=== PATIENT | female | born 1990 | race Caucasian/White ===

== ENCOUNTER → 2017-12-20 21:25 | Outpatient (CLI) | payer OTHER, SELFPAY ==
[2017-12-27 16:10] LABS: HPV Reflexed? NOT INDICATED
== END ==
PROVIDERS: Family Provider Family Medicine; PCP Family Medicine; Visit Provider Obstetrics & Gynecology
DX: Z01.419 Encounter for gynecological examination (general) (routine) without abnormal findings (principal); Z12.4 Encounter for screening for malignant neoplasm of cervix
CPT/HCPCS: 88175; G0145

== ENCOUNTER → 2019-09-12 17:45 | Outpatient (CLI) | payer OTHER, SELFPAY ==
[2019-09-12 20:46] LABS: Chlamydia Trachomatis by PCR Negative (Negative); Neisserai gonorrhoeae by PCR Negative (Negative); Probe Check PASS; Sample Adequacy Control PASS; Specimen Processing Control PASS
== END ==
PROVIDERS: Family Provider Family Medicine; PCP Family Medicine; Referring Provider Obstetrics & Gynecology; Visit Provider Obstetrics & Gynecology
DX: Z32.01 Encounter for pregnancy test, result positive (principal); Z11.3 Encounter for screening for infections with a predominantly sexual mode of transmission
CPT/HCPCS: 87491; 87591

== ENCOUNTER → 2019-09-15 09:08 | Outpatient (CLI) | payer OTHER, SELFPAY ==
[2019-09-15 10:09] LABS: Absolute Lymphocyte Count 1.81 X10^3/uL (0.83-4.51); Basophil# 0.04 X10^3/uL; Basophil% 0.4 % (0-1); Color, Urine Yellow (Yellow); Eosinophil# 0.05 X10^3/uL; Eosinophils% 0.5 % (0-5); Glucose, Dipstick Normal (Normal); Hematocrit 41.6 % (37-47); Hemoglobin 13.4 g/dL (12.0-15.0); Ketone-Dipstick Negative (Negative); Leukocyte Esterase-Dipstick 25 /ul (Negative); Lymphocyte # 1.81 X10^3/ul (4.0); Lymphocyte % 18.9 % (19-41); Mean Corp Hgb Conc 32.2 g/dL (32-36); Mean Corpuscular Hgb 29.5 pg (27.0-32.0); Mean Corpuscular Volume 91.6 fL (81-99); Monocyte# 0.68 X10^3/uL; Monocyte% 7.1 % (0-10); NRBC Flagged by Analyzer 0 % (0-5); Neutrophil # 6.99 X10^3/uL (2.7-7.7); Neutrophil % 72.9 % (47-70); Nitrite-Dipstick Negative (Negative); Occult Blood-Urine Negative /ul (Negative); Platelet Count 281 K/mm3 (150-450); Protein-Dipstick Negative (Negative); RBC Distribution Width CV 12.8 % (11.6-14.6); RBC Distribution Width SD 42.8 fl (35.1-43.9); Red Blood Count 4.54 M/mm3 (4.2-5.4); Urine Bilirubin Dipstick Negative (Negative); Urine Clarity Clear (Clear); Urine Urobilinogen Normal (Normal); White Blood Count 9.6 K/mm3 (4.4-11.0)
[2019-09-15 10:22] LABS: Amphetamine Urine VISTA NEGATIVE (<1000 ng/mL); Barbiturate Urine VISTA NEGATIVE (< 200 ng/mL); Benzodiazepine Urine VISTA NEGATIVE (< 200 ng/mL); Cocaine Urine VISTA NEGATIVE (< 300 ng/mL); Ecstacy Urine VISTA NEGATIVE (< 500 ng/mL); Methadone Urine VISTA NEGATIVE (< 300 ng/mL); PCP Urine VISTA NEGATIVE (< 25 ng/mL); THC Urine VISTA NEGATIVE (< 50 ng/mL); Vista UDS pH Range 6
[2019-09-15 10:45] LABS: ALB/GLOB Ratio 0.8 RATIO (0.9-2.4); AST(SGOT) 13 U/L (15-37); Alanine Aminotransfer ALT/SGPT 20 U/L (13-56); Albumin, Serum 3.5 g/dL (3.2-5.0); Alkaline Phosphatase 51 U/L (45-117); Anion Gap 7 (5-15); BUN 13 mg/dL (7-18); BUN/Creat Ratio 18.8 RATIO (10-20); Calcium,Total 8.9 mg/dL (8.5-10.1); Chloride 104 mmol/L (98-107); Creatinine, Serum 0.69 mg/dL (0.55-1.02); EST Glomerular Filtration Rate 106 mL/min (>60); Est Glom Filt Rate - Afr Amer 129 mL/min (>60); Globulin 4.2 g/dL (2.2-4.2); Glucose 58 mg/dL (74-106); Potassium 3.6 mmol/L (3.5-5.1); Protein, Total 7.7 g/dL (6.4-8.2); Sodium Level 139 mmol/L (136-145); Thyroid Stim Hormone (TSH) 1.52 uIU/mL (0.358-3.74)
[2019-09-17 10:31] LABS: HIV - WCH Non-Reactive (Nonreactive); Hepatitis B Surface Antigen Non-Reactive (Nonreactive); Hepatitis C Antibody Non-Reactive (Nonreactive); Rubella IgG 21.3 IU/mL; Vitamin D,25 Hydroxy 27.2 ng/mL (29.95-100.01)
[2019-09-20 02:46] LABS: Prenatal RPR NONREACTIVE (NONREACTIVE)
== END ==
PROVIDERS: Family Provider Family Medicine; PCP Family Medicine; Referring Provider Obstetrics & Gynecology; Visit Provider Obstetrics & Gynecology
DX: Z34.81 Encounter for supervision of other normal pregnancy, first trimester (principal)
CPT/HCPCS: 36415; 80053; 80307; 81002; 82306; 84144; 84443; 85025; 86703; 86762; 86803; 87340

== ENCOUNTER → 2019-11-30 | Outpatient (CLI) | payer OTHER, SELFPAY ==
[2016-11-09 17:39] VITALS: BMI 30.5
[2019-12-04 16:07] LABS: AFP MoM Value 1.24 (.); AFP Value-EIA 53.6 ng/mL (.); Comment Report (.); DIA MoM Value 0.64 (.); DIA Value-EIA 106.17 pg/mL (.); DSR (By Age) 665 (.); DSR (Second Trimester) 10000 (.); Gestat. Age Based On As provided (.); Insulin Dep Diabetes No (.); Maternal Age At EDD 30.4 yr (.); hCG MoM 1.11 (.)
== END | disposition home or self-care (01) ==
LOC: LABSPEC 15:45
PROVIDERS: Visit Provider Obstetrics & Gynecology
DX: Z34.82 Encounter for supervision of other normal pregnancy, second trimester (principal)
CPT/HCPCS: 82105; 82677; 84702

== ENCOUNTER → 2020-02-15 10:55 | Outpatient (CLI) | payer OTHER, SELFPAY ==
[2016-11-09 17:39] VITALS: BMI 30.5
[2020-02-15 17:06] LABS: Hematocrit 37.4 % (37-47); Hemoglobin 11.9 g/dL (12.0-15.0); Mean Corp Hgb Conc 31.8 g/dL (32-36); Mean Corpuscular Hgb 29.5 pg (27.0-32.0); Mean Corpuscular Volume 92.6 fL (81-99); Mean Platelet Vol. 11.5 fl (6.2-12.0); Platelet Count 262 K/mm3 (150-450); RBC Distribution Width CV 13.7 % (11.6-14.6); RBC Distribution Width SD 46.5 fl (35.1-43.9); Red Blood Count 4.04 M/mm3 (4.2-5.4); White Blood Count 13.9 K/mm3 (4.4-11.0)
[2020-02-15 17:52] LABS: Glucose Challenge Gest 1H 50g 122 mg/dL (70-140)
[2020-02-15 17:54] LABS: Vitamin D,25 Hydroxy 44.9 ng/mL
== END ==
PROVIDERS: Referring Provider Obstetrics & Gynecology; Visit Provider Obstetrics & Gynecology
DX: O26.893 Other specified pregnancy related conditions, third trimester (principal); E55.9 Vitamin D deficiency, unspecified; Z3A.00 Weeks of gestation of pregnancy not specified
CPT/HCPCS: 82306; 82950; 85027

== ENCOUNTER → 2020-04-08 | Outpatient (CLI) | payer OTHER, SELFPAY | END | disposition home or self-care (01) | PROVIDERS: PCP Family Medicine; Visit Provider Obstetrics & Gynecology | DX: Z36.85 Encounter for antenatal screening for Streptococcus B (principal) | CPT/HCPCS: 87077; 87081 ==

== ENCOUNTER 2020-04-25 05:35 | Inpatient (IN) | payer OTHER, SELFPAY ==
[2020-04-25] VITALS (16 sets, daily range): BP systolic 104–127; BP diastolic 59–76; PULSE 62–80; RESP 12–18; TEMP 35.9–36.6; O2SAT 94–100; BMI 29.5
[2020-04-25] MEDS: Acetaminophen 500 MG Tablet 1000 MG PO ×4 (06:04→23:56)
[2020-04-25] MEDS: Lactated Ringers 1,000 ML 999 ML IV (06:15)
[2020-04-25 06:24] LABS: Absolute Lymphocyte Count 1.95 X10^3/uL (0.83-4.51); Absolute Neutrophil Count 7.7 X10^3/uL (2.0-7.7); Basophil# 0.04 X10^3/uL; Basophil% 0.4 % (0-1); Eosinophil# 0.08 X10^3/uL; Eosinophils% 0.8 % (0-5); Hematocrit 34.8 % (37-47); Hemoglobin 11.4 g/dL (12.0-15.0); Lymphocyte # 1.95 X10^3/ul (4.0); Mean Corp Hgb Conc 32.8 g/dL (32-36); Mean Corpuscular Hgb 30.6 pg (27.0-32.0); Mean Corpuscular Volume 93.5 fL (81-99); Mean Platelet Vol. 13.1 fl (6.2-12.0); Monocyte# 0.45 X10^3/uL; Monocyte% 4.4 % (0-10); NRBC Flagged by Analyzer 0 % (0-5); Neutrophil # 7.72 X10^3/uL (2.7-7.7); Neutrophil % 74.9 % (47-70); POSITIVE COUNT YES; RBC Distribution Width CV 13.5 % (11.6-14.6); RBC Distribution Width SD 45.3 fl (35.1-43.9); Red Blood Count 3.72 M/mm3 (4.2-5.4); White Blood Count 10.3 K/mm3 (4.4-11.0)
[2020-04-25 06:43] LABS: Differential Indicated SCAN CRITERIA MET
[2020-04-25] MEDS: Lactated Ringers 1,000 ML 150 ML IV (07:16)
[2020-04-25] MEDS: Sodium Citrate/Citric Acid 30 ML UDC PO (07:19)
[2020-04-25 07:26] LABS: Platelet Count 183 K/mm3 (150-450)
--- NOTE | 2020-04-25 07:30 | FALS_PTH ---
PATIENT: HANNAH WELLS LOC: WP U#:[id number] AGE/SX: 29/F ROOM: WP006 RE04/25/[address]: Dr. Aiyana Ames MD : 1990 BED: 1 DIS: 04/27/2020 SPEC #: [id number] RECD: 04/25/20 11:01 STATUS: JUANA REShane #: [id number] MARK: 04/25/20 07:[address]: Aiyana Vargas DEPT: SURGICAL PATHOLOGY RECD BY: Jose Guadalupe Ortiz ENTERED: 04/25/20 13:10 SP TYPE: FALL TUBES OTHR DR: Berkley Holman PA-C Tissues: Fallopian tube Procedures: Surgery Specimen Level II HEADER OPERATION: Tubal ligation PRE-OP DIAGNOSIS: Sterilization TISSUE SUBMITTED: Fallopian tubes, suture in left tube MICROSCOPIC DIAGNOSIS Bilateral fallopian tubes, tubal ligation: Completely transected segments of bilateral fallopian tubes, no pathologic diagnosis. SJ:wily 04/28/20 MICROSCOPIC DESCRIPTION Slides are reviewed. GROSS DESCRIPTION Received in fixative is one container labeled with the patient's name and designated bilateral fallopian tubes. The specimen consists of two fallopian tubes. The right fallopian tube has an average length of 1.6 cm and has an average diameter of 0.7 cm. The left fallopian tube has an average length of 3 cm and has an average diameter of 0.5 cm. No mass lesions are identified. Classification Analyst sections are submitted in two cassettes as follows: 1 - right fallopian tube, 2 - left fallopian tube. / AM:wily 04/25/20 TC:5 CPT: 11193 x2
[2020-04-25 07:41] LABS: Platelet Estimate ADEQUATE (ADEQ)
[2020-04-25 07:44] LABS: ALB/GLOB Ratio 0.6 RATIO (0.9-2.4); AST(SGOT) 19 U/L (15-37); Alanine Aminotransfer ALT/SGPT 18 U/L (13-56); Albumin, Serum 2.4 g/dL (3.2-5.0); Alkaline Phosphatase 106 U/L (45-117); Anion Gap 6 (5-15); BUN 9 mg/dL (7-18); Calcium,Total 8.5 mg/dL (8.5-10.1); Chloride 106 mmol/L (98-107); Creatinine, Serum 0.75 mg/dL (0.55-1.02); EST Glomerular Filtration Rate 96 mL/min (>60); Est Glom Filt Rate - Afr Amer 117 mL/min (>60); Estimated Creatinine Clearance 98.69 ml/min; Glucose 113 mg/dL (74-106); Potassium 3.4 mmol/L (3.5-5.1); Protein, Total 6.4 g/dL (6.4-8.2); Sodium Level 139 mmol/L (136-145); Uric Acid 4.3 mg/dL (2.6-6.0)
--- NOTE | 2020-04-25 07:48 | PCM.HP.OB ---
- Problem List (1) 39 weeks gestation of Status: Acute History Date of Admission: 04/25/20 Final SHILA: 05/02/20 Final SHILA Source: US <20 weeks Gestational age: 39 Weeks and 0 Days History of this : This is a 29 year-old, G [2], P [0102], at 39 weeks gestational age with hx prior section presenting for scheduled repeat with bilateral tubal ligation. Medical History: Medical History (Last Updated 04/25/20 @ 07:[address] 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 Aiyana Ames MD) Previous section Z98.891 Allergies cefaclor [From Ceclor] Adverse Reaction (Verified 11/09/16 17:40) Rash Home Medications: Home Medications Vits [Prenatabs FA ] 1 tab PO DAILY 11/03/16 Sertraline HCl [Zoloft] 100 mg PO DAILY 11/03/16 Aspirin [Aspirin, Baby] 81 mg PO DAILY@0800 04/25/20 Citalopram Hydrobromide [Citalopram HBr] 40 mg PO DAILY 04/25/20 Smoking Status: Never smoker Alcohol: None Substance Use Type: Anxiety Medications, Sleep Aides Number of Fetus(es): 1 NST - FHR Rate Baby A Baseline: 130 bpm History Past Pregnancies: Past Pregnancies Delivery Date Name GA/ Weeks Outcome Route Wt Infant Sex Labor Length Anesthesia Delivery Location B 11/2016 Nikos Arthur 32 PTL, HELLP 4lb8oz each M/M 12 Epidural Mesha Berezy Labs: Mom's Problem List Problem Status Onset Code 39 weeks gestation of Acute Z3A.39 Mom's Labs & Results 04/25/20 04/25/20 04/25/20 06:05 06:05 06:48 WBC 10.3 RBC 3.72 L Hgb 11.4 L Hct 34.8 L MCV 93.5 MCH 30.6 MCHC 32.8 RDW Std Deviation 45.3 H RDW Coeff of Gigi 13.5 Plt Count MPV 13.1 H Immature Gran % (Auto) 0.500 Neut % (Auto) 74.9 H Lymph % (Auto) 19.0 [place] % (Auto) 4.4 Eos % (Auto) 0.8 Baso % (Auto) 0.4 Absolute Neuts (auto) 7.7 Absolute Lymphs (auto) 1.95 Nucleated RBC % 0 Platelet Estimate ADEQUATE PT INR APTT Sodium Potassium Chloride Carbon Dioxide Anion Gap BUN Creatinine Estim Creat Clear Calc Est GFR (MDRD) Af Amer Est GFR (MDRD) Non-Af BUN/Creatinine Ratio Glucose Uric Acid Calcium Total Bilirubin AST ALT Alkaline Phosphatase Total Protein Albumin Globulin Albumin/Globulin Ratio COVID-19 ([facility]) Pending Blood Type A POSITIVE Antibody Screen NEGATIVE 04/25/20 04/25/20 04/25/20 07:20 07:20 07:20 WBC RBC Hgb Hct MCV MCH MCHC RDW Std Deviation RDW Coeff of Gigi Plt Count 183 MPV Immature Gran % (Auto) Neut % (Auto) Lymph % (Auto) [place] % (Auto) Eos % (Auto) Baso % (Auto) Absolute Neuts (auto) Absolute Lymphs (auto) Nucleated RBC % Platelet Estimate PT Pending INR Pending APTT Pending Sodium 139 Potassium 3.4 L Chloride 106 Carbon Dioxide 27.0 Anion Gap 6 BUN 9 Creatinine 0.75 Estim Creat Clear Calc 98.69 Est GFR (MDRD) Af Amer 117 Est GFR (MDRD) Non-Af 96 BUN/Creatinine Ratio 12.0 Glucose 113 H Uric Acid 4.3 Calcium 8.5 Total Bilirubin 0.20 AST 19 ALT 18 Alkaline Phosphatase 106 Total Protein 6.4 Albumin 2.4 L Globulin 4.0 Albumin/Globulin Ratio 0.6 L COVID-19 ([facility]) Blood Type Antibody Screen Course Did the patient receive Yes care? Labs Blood Type: A RH: POSITIVE RPR/VDRL/Syphilis Nonreactive Rubella status Immune HbSAg Negative Date Done: 09/15/19 Chlamydia Negative Gonorrhea Negative HIV/AIDS Non-Reactive Group B Strep: Negative Current Obstetrical History Gestational Diabetes No Incompetent Cervix No Infertility No IUGR No Macrosomia No Hypertension/Pre-eclampsia No Placenta Previa/Abruption Yes: partial previa corrrected at 28wks PTL/PROM No Uterine anomaly No Oligohydramnios No Polyhydramnios No Multiple gestation No Past Medical History Asthma No Diabetes No Hypertension No Heart disease No Mitral valve prolapse No Neurologic/Seizure disorder/ No Migraines Kidney disease No Liver disease No Varicosities No Clotting disorders/Hx of DVT No Thyroid Dysfunction No Other medical diseases No Psychiatric disorders Yes: anxiety Major trauma No Abnormal PAP smear No Sleep apnea No Mammogram in the last 2 years No Medications Taken During Dose/Freq.: [Progesterone] 50 Reason for taking medication [ hx delivery stopped at 36 wks Progesterone] Social History Marital Status: Alleged father Breezy Pop Hx Smoking No Smoking Status Never smoker Substance Use Type Anxiety Medications,Sleep Aides Expected Infant Delivery Method: Scheduled Section Number of Visits: 12 Review of Systems Eyes: Denies: Vision Change Cardiovascular: Denies: Chest Pain, Edema Respiratory: Denies: Cough, Shortness of Breath Gastrointestinal: Denies: Abdominal Pain, Nausea, Vomiting Gynecological: Reports: - - occasional contractions Physical Exam Vitals: AVSS General: Alert, Oriented x3, Cooperative, No apparent distress HEENT: Atraumatic, Normocephalic Cardiovascular: Regular rate, Regular Rhythm, Normal S1, Normal S2 Lungs: Clear to auscultation, Normal air movement Abdomen: Soft, Non Tender, Non-Distended, Gravid Neurological: Neuro grossly intact Estimated gestational size: Appropriate for gestational size Presentation: Cephalic Assessment/Plan All Active Problems (Last Updated 04/25/20 @ 07:[address] Aiyana Ames MD) 39 weeks gestation of (Acute) Request for sterilization (Acute) This is a 29 year-old, G [2], P [0102], at 39 weeks gestational age for scheduled repeat section with BTL. -Platelet count initially reported at 76 however significant clumping. Repeat count is normal. Will proceed as planned with spinal. -COVID19 testing pending. Procedure Criteria Procedure Type: Elective COVID Risk Discussion: The surgeon/proceduralist and patient have discussed in detail the risk of exposure to and/or potential harm posed by the COVID-19 virus with having a surgery/procedure at this time versus the risk of delaying the surgery/procedure. It is not possible to know either the risk of delaying the surgery or procedure or chance of getting an infection with perfect accuracy, but a joint decision was made between the patient and the surgeon/proceduralist to proceed at this time with the scheduled surgery/procedure as indicated on the consent form.
[2020-04-25 07:51] LABS: Prothrombin Time (Protime)PT. 12.8 SECONDS (11.7-14.9)
[2020-04-25 08:06] LABS: Partial Thromboplast Time 31.6 Seconds (24.1-36.2)
[2020-04-25] MEDS: Cefazolin 2 GM in 0.9% Normal Saline 100 ML IV (08:07)
[2020-04-25] MEDS: Methylergonovine 0.2 MG/ML Ampul IM (08:24)
--- NOTE | 2020-04-25 09:13 | PCM.OPRPT ---
Problem List (1) 39 weeks gestation of Status: Acute (2) Request for sterilization Status: Acute Delivery Classification: Scheduled Final SHILA: 05/02/20 Final SHILA Source: US <20 weeks Gestational age: 39 Weeks and 0 Days user acceptance tester: Jenelle Santiago Type of Anesthesia:: Spinal Date of Procedure: 04/25/20 Pre-Operative Diagnosis: 1. 39 weeks gestation. 2. Previous section, declined trial of labor. 3. Sterilization request Post-Operative Diagnosis: 1. 39 weeks gestation. 2. previous section, declines trial of labor. 3. Sterilization request Indications: 29-year-old 2 para 0-1-0-2 admitted at 39 weeks gestational age for scheduled repeat section with bilateral tubal ligation. Patient was counseled regarding delivery options and declined a trial of labor. I reviewed with her procedural risks, benefits, indications and alternatives including for the sterilization procedure. The patient desired to proceed as planned. Indications for : Repeat Elective , Desires elective sterilization Description of Procedure: The patient was taken to the operating room and spinal analgesia was administered. She is placed in a dorsal supine position with left lateral tilt. The perineum and abdomen were prepped and draped in sterile fashion. And the spinal was found to be adequate. A Pfannenstiel incision was made using a scalpel and brought down to incise the subcutaneous tissue and rectus fascia at the midline. Subcutaneous tissue was bluntly dissected off the fascia laterally. The fascial incision was dissected laterally and cephalad using curved Jacinto scissors. The superior leaflet of the rectus fascia was grasped using Marie clamps and bluntly dissected and sharply dissected from the underlying rectus muscle. In a similar fashion the inferior rectus fascia was dissected from the underlying muscle. The rectus muscles were bluntly at the midline. The peritoneum was identified and entered [sharply]. The bladder blade was placed into the abdomen and the vesicouterine peritoneal fold identified. The fold was incised and a bladder flap created. Bladder blade was then repositioned to the abdomen. A low transverse hysterotomy was made using the [Metzenbaum scissors] to level of the membranes. The hysterotomy was extended bluntly cephalad and caudad. The membranes were then ruptured revealing clear fluid. The head was elevated and brought to the level of the hysterotomy and the infant delivered revealing vigorous [female] infant. The cord was doubly clamped and cut after 60 seconds. The was passed to awaiting [nursery personnel]. The placenta was [expressed] from the uterus and appeared intact on inspection. The uterus was exteriorized and cleared of debris. The hysterotomy was then repaired using 0 Vicryl running lock suture. The uterus was boggy without hemorrhage, thus IM Methergine was given in addition to standardized pitocin. A second imbricating layer was also placed for additional hemostasis. The right tube and fimbria was identified and grasped using a Rachana clamp at the ampullary segment. The mesosalpinx was opened using the Bovie and the proximal and distal ampullary segments were ligated using 0 plain gut. An intervening segment of tube approximately 2 cm was excised using Metzenbaum scissors. The tubal ostia were visualized. In similar fashion Kep'El double ligation was performed at the left. The uterus and adnexa were returned to the abdomen. The bladder blade was removed. The anterior cul-de-sac was cleared of debris. The peritoneum and rectus muscles were reapproximated using 2-0 Vicryl running suture. The rectus fascia was closed using 0 Vicryl running suture. The subcutaneous tissue was reapproximated using 2-0 Vicryl. The skin was closed using 4-0 Monocryl subcuticularly. The subcutaneous and subcuticular closures were performed by the PICCOLOIST under my supervision. A Mepilex occlusive dressing was placed over the incision. The fundus was firm. The patient was then transferred to the recovery room without complication. Sponge, instrument, and needle counts were correct ?2. Amniotic Membrane Rupture Type: Artificial Amniotic Fluid Description: Clear Placenta Disposition: [facility] Specimen(s) sent to pathology: right and left tubes Drain: Flores to straight drain Fluids Replaced: 1000 ml Cord Entanglement: - - loose around leg Nuchal Cord Compression: Without compression Cord Vessel Description: 3 Vessels Esitmated Blood Loss (ml): 850 ml Infant Gender: Female (1 minute): 8 (5 minute): 9 - Weight 8lb 2oz Delayed cord clamping: Yes Antibiotic Given: Ancef 2 grams IV x1 Pt instructed on risks of surgery: Bleeding, Anesthesia Risks, Infection, Need for Future C-Sections, Failure Rate of 1 to 2%, Injury to surrounding structure(s) including bowel and bladder, Availability of other non-permanent control options Complications: None - Admit VTE Documentation VTE Present on Admission: No VTE Mechan Device Prophylaxis: SCD's VTE Pharm Prophylaxis ordered?: No
[2020-04-25] MEDS: Oxytocin 30 units/NS 500 ml 30 UNITS/500 ML IV.SOLN 167 UNITS IV (09:30)
[2020-04-25 11:01] LABS: Pathology Specimen OB SEE PATHOLOGY REPORT
--- NOTE | 2020-04-25 11:23 | NURSING ---
see PACU discharge for rest of information
[2020-04-25] MEDS: Senna/Docusate Sodium 1 Tablet PO (12:24)
[2020-04-25] MEDS: Prenatal Vits Tablet 1 TABLET PO (12:24)
[2020-04-25] MEDS: Ketorolac 30 MG/ML Syringe IV ×3 (12:26→23:55)
[2020-04-25] MEDS: Ondansetron 4 MG/2 ML Vial IV (12:45)
[2020-04-25] MEDS: Lactated Ringers 1,000 ML 100 ML IV (12:53)
[2020-04-25] MEDS: 0.9% Saline Lock 10 ML Syringe IV ×2 (18:04→23:56)
[2020-04-26 00:05] VITALS: BP 111/73; PULSE 71; RESP 18; TEMP 36.4
[2020-04-26] MEDS: 0.9% Saline Lock 10 ML Syringe IV (05:30)
[2020-04-26] MEDS: Ketorolac 30 MG/ML Syringe IV (05:30)
[2020-04-26 05:33] VITALS: BP 118/75; PULSE 69; RESP 18; TEMP 36.3
[2020-04-26 05:47] LABS: Hematocrit 34.8 % (37-47); Hemoglobin 11.1 g/dL (12.0-15.0); Mean Corp Hgb Conc 31.9 g/dL (32-36); Mean Corpuscular Hgb 30.3 pg (27.0-32.0); Mean Corpuscular Volume 95.1 fL (81-99); Mean Platelet Vol. 12.1 fl (6.2-12.0); Platelet Count 180 K/mm3 (150-450); RBC Distribution Width CV 13.3 % (11.6-14.6); RBC Distribution Width SD 46.4 fl (35.1-43.9); Red Blood Count 3.66 M/mm3 (4.2-5.4); White Blood Count 14.4 K/mm3 (4.4-11.0)
[2020-04-26] MEDS: Acetaminophen 500 MG Tablet 1000 MG PO ×4 (06:35→23:58)
[2020-04-26 09:49] VITALS: BP 108/70; PULSE 78; RESP 16; TEMP 36.7; O2SAT 97
--- NOTE | 2020-04-26 11:10 | PN.OBGYN_ITS ---
Patient Problems: Active and Suspected Problems (Last Updated 04/25/20 @ 07:[address] Aiyana Ames MD) 39 weeks gestation of (Acute) Request for sterilization (Acute) Subjective: Feeling well. Mild pain, but well controlled with medication. Has been up ambulating in room. Urinating fine. Has only passed flatus x1. Tolerating regular diet. daughter well with no concerns. Plans to discharge tomorrow. Objective: VSS. Fundus is u/2, firm and midline. Surgical dressing CDI. Lochia rubra scant. - Physical Exam Vitals/I&O's: Vital Signs Temp Pulse Resp BP Pulse Ox 98.1 F 78 16 108/70 97 04/26/20 09:49 04/26/20 09:49 04/26/20 09:49 04/26/20 09:49 04/26/20 09:49 Oxygen Delivery Method Room Air Weight: 80.377 kg Body Mass Index (BMI) 29.5 Intake and Output for Last 24 Hours 04/24/20 04/25/20 04/26/20 23:59 23:59 23:59 Intake Total 3053.33 / 3053.33 Output Total 3000 / 3000 500 / 500 Balance 53.33 / 53.33 -500 / -500 General: Alert, Oriented x3, Cooperative HEENT: Atraumatic, PERRLA, EOMI, Normocephalic Neck: Supple, No JVD, Negative Carotid Bruits Lungs: Clear to auscultation, Normal air movement Cardiovascular: Regular rate, No murmurs Abdomen: Bowel Sounds Present, Soft, Hypoactive Bowel Sounds, Tender - will palpation close to incision, incision CDI Extremities: No edema, Capillary Refill Less than 3 Seconds Skin: No rashes, No breakdown Musculoskeletal: No Tenderness to Palpation of Joints or Extremities Neurological: Cranial nerves II-XII grossly intact Psych/Mental Status: Normal Affect, Appropriate Laboratory Results 04/26/20 05:30: WBC 14.4 H, RBC 3.66 L, Hgb 11.1 L, Hct 34.8 L, MCV 95.1, MCH 30.3, MCHC 31.9 L, RDW Std Deviation 46.4 H, RDW Coeff of Gigi 13.3, Plt Count 180, MPV 12.1 H Current Medications Acetaminophen (Tylenol) 1,000 mg PO Q6 [facility] Last Admin: 04/26/20 06:35 Dose: 1,000 mg Documented by: Bisacodyl (Dulcolax) 10 mg RECTAL UD PRN PRN Reason: If no BM Hydrocortisone (Hytone) 1 applic TOPICAL TID PRN PRN; Protocol PRN Reason: Discomfort Naloxone HCl 4 mg/ Dextrose 504 mls @ 0 mls/hr IV .Q0M PRN; Protocol PRN Reason: Respiratory depression Ibuprofen (Motrin) 600 mg PO Q6 [facility] Methylergonovine Maleate (Methergine) 0.2 mg IM X1 PRN PRN Reason: Uterine Atony Last Admin: 04/25/20 08:24 Dose: 0.2 mg Documented by: Naloxone HCl (Narcan) 0.02 mg IV Q1M PRN PRN Reason: RR <10 and pt unresponsive Ondansetron HCl (Zofran) 4 mg IV Q4H PRN PRN PRN Reason: Nausea Last Admin: 04/25/20 12:45 Dose: 4 mg Documented by: Oxycodone HCl (Oxyir) 5 - 10 mg PO Q4H PRN PRN PRN Reason: Pain Score 4-10/10 Multivit/Folic Acid/Iron (Prenatabs Fa) 1 tablet PO DAILY@1200 [facility] Last Admin: 04/25/20 12:24 Dose: 1 tablet Documented by: Prochlorperazine Edisylate (Compazine Iv) 10 mg IV Q6H PRN PRN PRN Reason: NAUSEA Senna/Docusate Sodium (Senokot-S, Yamilex-Colace) 0 tablet PO DAILY [facility] Last Admin: 04/25/20 12:24 Dose: 1 tablet Documented by: Simethicone (Mylicon) 80 mg PO [facility] PRN PRN Reason: Indigestion/stomach pain Sodium Chloride () 5 - 15 ml IV UD PRN PRN Reason: SALINE FLUSH Last Admin: 04/26/20 05:30 Dose: 10 ml Documented by: Medical Necessity - Tobacco Use Smoking Status: Never smoker Assessment/Plan All Active Problems (Last Updated 04/25/20 @ 07:[address] Aiyana Ames MD) 39 weeks gestation of (Acute) Request for sterilization (Acute) A/P: S/P Repeat Csection POD #1 mother Pain well controlled Normal involution and course Continue postop orders Educated on ambulating and stool softeners as needed Dyad stable Plan to discharge tomorrow
[2020-04-26] MEDS: Ibuprofen 600 MG Tablet PO ×3 (12:15→23:58)
[2020-04-26] MEDS: Senna/Docusate Sodium 1 Tablet PO (12:15)
[2020-04-26] MEDS: Prenatal Vits Tablet 1 TABLET PO (12:16)
[2020-04-26 14:00] VITALS: BP 115/76; PULSE 71; RESP 16; TEMP 36.6; O2SAT 98
[2020-04-26 20:20] VITALS: BP 111/68; PULSE 79; RESP 16; TEMP 36.2; O2SAT 97
[2020-04-27 04:45] VITALS: BP 116/63; PULSE 84; RESP 16; TEMP 36.6; O2SAT 98
[2020-04-27] MEDS: Ibuprofen 600 MG Tablet PO (06:35)
[2020-04-27] MEDS: Acetaminophen 500 MG Tablet 1000 MG PO (06:36)
[2020-04-27 08:18] VITALS: BP 124/78; PULSE 71; RESP 16; TEMP 37.1; O2SAT 98
--- NOTE | 2020-04-27 10:31 | DCINST_ITS ---
Discharge Diet: No Restrictions Discharge Activity: May Not Drive - for 2 weeks or while taking narcotic pain meds., May Shower, May Take a Tub Bath - in 7 days. May resume sexual activity in: 4-6 weeks Lifting Restrictions: 20 pounds Additional Activity Instructions:: Nothing in the vagina for 4-6 weeks. You may return to work/school in 6 weeks. Call your doctor if your incision/area has: Continuous Slow Oozing, Sudden Increased Bleeding, Increased Pain/ Swelling, Increased Redness, Foul Smelling Discharge Call your doctor if you observe: Fever of 101 or Higher Suture Line Care: Avoid Pulling/Pushing, Avoid Pinching/Bending Remove Dressing in (days):: 5 Cleanse incision/area with: Keep Dressing Clean & Dry Additional Dressing/Incision Instructions:: Once removing the dressing, do not scrub the area while showering. Let soap and water run over and pat dry. Additional Instructions: If you experience any of the following, contact your healthcare provider. * Bleeding that soaks a pad every hour for 2 hours * Fever 100.4 or higher * Unrelieved incision or abdominal pain * Swelling, redness, discharge or bleeding from your incision or episiotomy site * Your incision begins to separate * Problems urinating (including inability to urinate or burning while urinating). * Visual changes * Severe headache * Flu-like symptoms * Pain or redness in one of both of your breasts * Pain, warmth, tenderness or swelling in your legs, especially the calf area * Frequent nausea and vomiting * Symptoms of depression or anxiety If you experience any of the following, call 911 or go to the nearest Emergency Room. * Chest pain * Problems breathing * Seizure activity * Partial or complete paralysis of a body part, slurred speech, weakness or drooping of the face, or a sudden inability to walk or hold your balance Allergies/Adverse Reactions: Allergies [facility]ac[facility]] Adverse Reaction (Verified 11/09/16 17:40) Rash Medications to take at Discharge Vits [Prenatabs FA ] 1 tab PO DAILY 11/03/16 Sertraline HCl [Zoloft] 100 mg PO DAILY 11/03/16 Aspirin [Aspirin, Baby] 81 mg PO DAILY@0800 04/25/20 Citalopram Hydrobromide [Citalopram HBr] 40 mg PO DAILY 04/25/20 Acetaminophen [Tylenol] 1,000 mg PO Q6 tablet 04/27/20 Ibuprofen [Motrin] 600 mg PO Q6 tablet 04/27/20 Oxycodone [Oxyir] 5 - 10 mg PO Q4H PRN PRN 3 Days #10 tablet 04/27/20 Senna/Docusate Sodium [Senokot-S] 1 tab PO DAILY #30 tablet 04/27/20 The following prescriptions were given: Oxycodone [Oxyir] 5 - 10 mg PO Q4H PRN PRN 3 Days #10 tablet PRN Reason: Pain Score 4-10/10 Senna/Docusate Sodium [Senokot-S] 1 tab PO DAILY #30 tablet Follow-Up: Call to make an appointment with your doctor for an incision check in 1-2 weeks. You will also need a 6 week post- follow up appointment. Test results from this visit will be discussed in further detail at your follow- up appointment, if applicable. Please Follow Up With: Aiyana Duque MD When: 1-2 weeks Primary Care Physician: Berkley Holman PA-C [Primary Care Provider] -
--- NOTE | 2020-04-27 10:49 | PN.OBGYN_ITS ---
Patient Problems: Active and Suspected Problems (Last Updated 04/25/20 @ 07:[address] Aiyana Ames MD) 39 weeks gestation of (Acute) Request for sterilization (Acute) Subjective: Feeling well. Denies heavy bleeding. Reports +flatus, but wanting a stool softener Rx. Urinating well. is going well with no concerns. Ready to discharge. Objective: VSS. Fundus is firm, midline, u/2. Incision CDI. Lochia rubra scant - Physical Exam Vitals/I&O's: Vital Signs Temp Pulse Resp BP Pulse Ox 98.7 F 71 16 124/78 H 98 04/27/20 08:18 04/27/20 08:18 04/27/20 08:18 04/27/20 08:18 04/27/20 08:18 Oxygen Delivery Method Room Air Weight: 80.377 kg Body Mass Index (BMI) 29.5 Intake and Output for Last 24 Hours 04/25/20 04/26/20 04/27/20 23:59 23:59 23:59 Intake Total 3053.33 / 3053.33 Output Total 3000 / 3000 500 / 500 Balance 53.33 / 53.33 -500 / -500 General: Alert, Oriented x3, Cooperative HEENT: Atraumatic, PERRLA, EOMI, Normocephalic Neck: Supple, No JVD, Negative Carotid Bruits Lungs: Clear to auscultation, Normal air movement Cardiovascular: Regular rate, No murmurs Abdomen: Bowel Sounds Present, Soft, Non Tender Extremities: No edema, Capillary Refill Less than 3 Seconds Skin: No rashes, No breakdown, Incision - abdominal CDI Musculoskeletal: No Tenderness to Palpation of Joints or Extremities Neurological: Cranial nerves II-XII grossly intact Psych/Mental Status: Normal Affect, Appropriate Current Medications Acetaminophen (Tylenol) 1,000 mg PO Q6 [facility] Last Admin: 04/27/20 06:36 Dose: 1,000 mg Documented by: Bisacodyl (Dulcolax) 10 mg RECTAL UD PRN PRN Reason: If no BM Hydrocortisone (Hytone) 1 applic TOPICAL TID PRN PRN; Protocol PRN Reason: Discomfort Naloxone HCl 4 mg/ Dextrose 504 mls @ 0 mls/hr IV .Q0M PRN; Protocol PRN Reason: Respiratory depression Ibuprofen (Motrin) 600 mg PO Q6 [facility] Last Admin: 04/27/20 06:35 Dose: 600 mg Documented by: Methylergonovine Maleate (Methergine) 0.2 mg IM X1 PRN PRN Reason: Uterine Atony Last Admin: 04/25/20 08:24 Dose: 0.2 mg Documented by: Naloxone HCl (Narcan) 0.02 mg IV Q1M PRN PRN Reason: RR <10 and pt unresponsive Ondansetron HCl (Zofran) 4 mg IV Q4H PRN PRN PRN Reason: Nausea Last Admin: 04/25/20 12:45 Dose: 4 mg Documented by: Oxycodone HCl (Oxyir) 5 - 10 mg PO Q4H PRN PRN PRN Reason: Pain Score 4-10/10 Multivit/Folic Acid/Iron (Prenatabs Fa) 1 tablet PO DAILY@1200 [facility] Last Admin: 04/26/20 12:16 Dose: 1 tablet Documented by: Prochlorperazine Edisylate (Compazine Iv) 10 mg IV Q6H PRN PRN PRN Reason: NAUSEA Senna/Docusate Sodium (Senokot-S, Yamilex-Colace) 0 tablet PO DAILY [facility] Last Admin: 04/26/20 12:15 Dose: 1 tablet Documented by: Simethicone (Mylicon) [address] [facility] PRN PRN Reason: Indigestion/stomach pain Sodium Chloride () 5 - 15 ml IV UD PRN PRN Reason: SALINE FLUSH Last Admin: 04/26/20 05:30 Dose: 10 ml Documented by: Medical Necessity - Tobacco Use Smoking Status: Never smoker Assessment/Plan All Active Problems (Last Updated 04/25/20 @ 07:[address] Aiyana Ames MD) 39 weeks gestation of (Acute) Request for sterilization (Acute) A/P: S/P Repeat Csection POD #2 mother Pain well controlled Normal involution and course Educated on ambulating and stool softeners as needed Would like Rx for additional stool softener Dyad stable Plan to discharge today
== END 2020-04-27 11:55 | disposition home or self-care (01) | DRG 785 ==
PROVIDERS: Obstetrics & Gynecology; Admitting Provider Obstetrics & Gynecology; PCP Family Medicine; Referring Provider Obstetrics & Gynecology; Visit Provider Obstetrics & Gynecology
PROC: 10D00Z1 Extraction of Products of Conception, Low, Open Approach (ICD-10-PCS; CPT 59514; principal; 2020-04-25 07:15)
DX: O34.219 Maternal care for unspecified type scar from previous cesarean delivery (principal); O69.82X0 Labor and delivery complicated by other cord entanglement, without compression, not applicable or unspecified; O99.344 Other mental disorders complicating childbirth; F41.9 Anxiety disorder, unspecified; Z30.2 Encounter for sterilization; Z79.899 Other long term (current) drug therapy; Z3A.39 39 weeks gestation of pregnancy; Z37.0 Single live birth
CPT/HCPCS: 80053; 84550; 85025; 85027; 85049; 85610; 85730; 86850; 86900; 86901; 86920; 87635; 88302; 99218; G2023; J7120; A4216; G0378; J2405; U0003

== ENCOUNTER → 2020-06-05 | Outpatient (CLI) | payer OTHER, SELFPAY ==
[2020-06-05 14:03] LABS: Free T3 2.4 pg/mL (2.18-3.98); T4 Free Direct 0.77 ng/dL (0.76-1.46); Thyroid Stim Hormone (TSH) 2.26 uIU/mL (0.358-3.74)
[2020-06-05 14:10] LABS: T3 Total - Triiodothyronine 1.06 ng/mL (0.6-1.81)
== END | disposition home or self-care (01) ==
LOC: LABSPEC 13:31
PROVIDERS: PCP Family Medicine; Visit Provider Obstetrics & Gynecology
DX: E03.9 Hypothyroidism, unspecified (principal); F41.9 Anxiety disorder, unspecified
CPT/HCPCS: 84439; 84443; 84480; 84481

== ENCOUNTER → 2021-09-30 | Outpatient (CLI) | payer OTHER, SELFPAY ==
[2021-10-07 11:49] LABS: HPV APTIMA, High Risk Negative (Negative)
== END | disposition home or self-care (01) ==
LOC: LABSPEC 14:37
PROVIDERS: PCP Family Medicine; Visit Provider Obstetrics & Gynecology
DX: Z12.4 Encounter for screening for malignant neoplasm of cervix (principal)
CPT/HCPCS: 87624; 88175; G0145

== ENCOUNTER → 2023-03-15 | Outpatient (CLI) | payer OTHER, SELFPAY ==
--- NOTE | 2023-03-15 16:39 | BI_ITS ---
MAMMOGRAPHY - BILATERAL SCREENING REASON FOR EXAM: Female, 32 years old. Routine annual screening examination. PERTINENT HISTORY: Mother with breast cancer. TECHNIQUE: Digital bilateral breast tayler (3D mammographic acquisition) in the CC and MLO projections. 2-D mediolateral oblique (MLO) and craniocaudad (CC) views of both breasts were obtained. CAD: Full Field Digital Mammography with Computer Added Detection was performed. COMPARISON: None. Baseline examination. FINDINGS: Breast Composition: The breasts are extremely dense, which lowers the sensitivity of mammography. There are no dominant masses or suspicious calcifications. There are small benign-appearing bilateral axillary lymph nodes. No other significant abnormalities are identified. BI/SCRN MAMM (CAD)W/TAYLER BILAT IMPRESSION: Negative screening mammogram. Yearly followup mammogram recommended. (A) ASSESSMENT CATEGORY: BIRADS Category 2: Benign. A letter regarding these results will be sent to the patient by the facility within 30 days. Approximately 10% of breast cancers are not detected by mammography. A normal mammogram should not delay biopsy of a clinically suspicious abnormality. [id number] Electronically Signed: Jason Keen MD at 9:11 EDT ,
== END | disposition home or self-care (01) ==
LOC: OPBI 03-16 07:05
PROVIDERS: PCP Family Medicine; Referring Provider Registered Nurse; Visit Provider Registered Nurse
DX: Z12.31 Encounter for screening mammogram for malignant neoplasm of breast (principal); Z80.3 Family history of malignant neoplasm of breast
CPT/HCPCS: 77063; 77067

== ENCOUNTER → 2024-07-19 | Outpatient (CLI) | payer OTHER, SELFPAY ==
--- NOTE | 2024-07-19 08:27 | BI_ITS ---
MAMMOGRAPHY - BILATERAL SCREENING REASON FOR EXAM: Female, 33 years old. Routine annual screening examination. PERTINENT HISTORY: Mother with breast cancer. TECHNIQUE: Digital bilateral breast tayler (3D mammographic acquisition) in the CC and MLO projections. 2-D mediolateral oblique (MLO) and craniocaudad (CC) views of both breasts were obtained. CAD: Full Field Digital Mammography with Computer Added Detection was performed. COMPARISON: Comparison is made with prior study dated March 15, 2023. FINDINGS: Breast Composition: The breasts are extremely dense, which lowers the sensitivity of mammography. There are no dominant masses or suspicious calcifications. Stable small bilateral axillary lymph nodes. No other significant abnormalities are identified. There has been no significant change since the prior study. BI/SCRN MAMM (CAD)W/TAYLER BILAT IMPRESSION: Stable bilateral screening mammogram. Yearly follow-up mammogram recommended. (A) ASSESSMENT CATEGORY: BIRADS Category 2: Benign. A letter regarding these results will be sent to the patient by the facility within 30 days. Approximately 10% of breast cancers are not detected by mammography. A normal mammogram should not delay biopsy of a clinically suspicious abnormality. [id number] Electronically Signed: Jason Keen MD at 11:02 EDT ,
== END | disposition home or self-care (01) ==
PROVIDERS: PCP Physician Assistant; Referring Provider Nurse Practitioner Women's Health; Visit Provider Nurse Practitioner Women's Health
DX: Z12.31 Encounter for screening mammogram for malignant neoplasm of breast (principal); Z80.3 Family history of malignant neoplasm of breast
CPT/HCPCS: 77063; 77067

== ENCOUNTER → 2024-08-06 | Outpatient (CLI) | payer OTHER, SELFPAY ==
[2024-08-06 19:50] LABS: T4 Free Direct 0.78 ng/dL (0.76-1.46)
[2024-08-11 14:09] LABS: Testosterone Free 1.3 pg/mL (0.0-4.2); Thyroid Peroxidase AB 17 IU/mL (0-34)
== END | disposition home or self-care (01) ==
LOC: LAB 14:21
PROVIDERS: PCP Physician Assistant; Referring Provider Nurse Practitioner Women's Health; Visit Provider Nurse Practitioner Women's Health
DX: Z13.29 Encounter for screening for other suspected endocrine disorder (principal); L70.9 Acne, unspecified; R63.5 Abnormal weight gain
CPT/HCPCS: 36415; 82627; 84402; 84439; 84443; 86376; 82626

== ENCOUNTER → 2025-10-28 | Outpatient (CLI) | payer OTHER, SELFPAY ==
--- NOTE | 2025-10-28 10:30 | BI_ITS ---
EXAM: SCRN MAMM (CAD)W/TAYLER BILAT DATE: 10/28/2025 CLINICAL HISTORY: F, Age 34 y/o , SCREENING TECHNIQUE: Procedure Code: [id number] Modality: MG Procedure: SCRN MAMM (CAD)W/TAYLER BILAT COMPARISON: Prior exam(s) were compared FINDINGS: TISSUE DENSITY: The breasts are heterogeneously dense, which may obscure small masses. Bilateral Breast Mammographic Findings: No significant masses, calcifications or other abnormalities are identified. BI/SCRN MAMM (CAD)W/TAYLER BILAT IMPRESSION: No mammographic evidence of malignancy. OVERALL FINAL ASSESSMENT BI-RADS 1: NEGATIVE. RECOMMENDATION: Routine annual follow-up in 1 Year Additional Recommendation none A letter with findings and recommendations will be mailed to the patient. Reading Location: [id number]
== END | disposition home or self-care (01) ==
LOC: OPBI 10:22
PROVIDERS: PCP Physician Assistant; Referring Provider Nurse Practitioner Women's Health; Visit Provider Nurse Practitioner Women's Health
DX: Z12.31 Encounter for screening mammogram for malignant neoplasm of breast (principal)
CPT/HCPCS: 77063; 77067